=== PATIENT | male | born 1960 ===

== ENCOUNTER 2017-07-04 21:26 | Observation (INO) | payer BC, SELFPAY ==
[2017-07-04] MEDS ORDERED: hydrALAZINE 20 MG/ML VIAL SLOW IVP PRN (21:40)
[2017-07-04] MEDS ORDERED: Ondansetron ODT 4 MG TAB SL PRN (21:41)
[2017-07-04] MEDS ORDERED: Ondansetron HCl/PF 4 MG/2 ML Vial IVP PRN (21:41)
[2017-07-04] MEDS ORDERED: Acetaminophen 325 MG TAB PO PRN (21:41)
[2017-07-04 23:33] VITALS: BMI 25.4
[2017-07-04] MEDS ORDERED: Nitroglycerin 2% Ointment 1 INCH/1 GM Packet TOP SCH (23:59)
[2017-07-05 01:32] LABS: Troponin I 0.013 ng/mL (< 0.028)
[2017-07-05] MEDS ORDERED: Nitroglycerin 2% Ointment 1 INCH/1 GM Packet TOP SCH (02:00)
[2017-07-05] MEDS ORDERED: hydrALAZINE 20 MG/ML VIAL SLOW IVP PRN (02:20)
[2017-07-05] MEDS ORDERED: Acetaminophen 325 MG TAB PO PRN (02:28)
[2017-07-05] MEDS ORDERED: HYDROcodone/Acetaminophen 10/325 mg Tablet PO PRN (02:28)
[2017-07-05] MEDS ORDERED: HYDROcodone/Acetaminophen 5/325 mg Tablet PO PRN (02:28)
[2017-07-05] MEDS ORDERED: Ondansetron ODT 4 MG TAB PO PRN (02:28)
[2017-07-05] MEDS ORDERED: Enoxaparin Sodium 40 MG/0.4 ML SYRINGE SC SCH (02:30)
[2017-07-05 06:01] LABS: #Basophils 0.1 thou/uL (0.0-0.2); #Eosinphils 0.1 thou/uL (0.0-0.7); #Lymphocytes 1.9 thou/uL (1.20-3.40); #Monocytes 0.8 thou/uL (0.11-0.59); #Neutrophils 5.9 thou/uL (1.40-6.50); %Eosinophils 0.7 % (0.0-10.0); %Monocytes 9.3 % (0.0-10.0); Hemoglobin 14.6 g/dL (14.0-18.0); Mean Corpuscular HGB CONC 34.4 g/dL (32.0-36.0); Mean Corpuscular Hemoglobin 30.6 pg (27.0-31.0); Mean Corpuscular Volume 89.1 fl (80.0-94.0); Mean Platelet Volume 6.8 fL (7.4-10.4); Platelet Count 218 thou/uL (130-400); RBC Distribution Width 11.5 % (11.5-14.5); Red Blood Cell (RBC) Count 4.78 mill/uL (4.70-6.10); White Blood Cell (WBC) Count 8.8 thou/uL (4.8-10.8)
[2017-07-05 06:16] LABS: Anion Gap 10 mmol/L (10-20); BUN (Urea Nitrogen) 14 mg/dL (8.4-25.7); Calc. Creatinine Clearance 91 mL/min (70-130); Calcium 9.7 mg/dL (7.8-10.44); Carbon Dioxide 27 mmol/L (22-29); Cardiac Risk 3.6 (Less than 4.5); Chloride 107 mmol/L (98-107); Cholesterol 167 mg/dl (< 200 Desired); Estimated GFR-MDRD 73; Glucose 104 mg/dL (70-105); HDL Cholesterol 47 mg/dL (>60 Neg Risk); LDL Cholesterol, Calculated 104 mg/dL; Potassium 3.9 mmol/L (3.5-5.1); Sodium 140 mmol/L (136-145); Triglycerides 78 mg/dL (Less than 150)
--- NOTE | 2017-07-05 08:05 | HP ---
DATE OF ADMISSION: 07/05/2017 TIME OF SERVICE: 0230 CHIEF COMPLAINT: Dizzy and high blood pressure. PRIMARY CARE PHYSICIAN: None. HISTORY OF PRESENT ILLNESS: Mr. Sagastume is a 57-year-old white male with no known past medical histor y who presents to the emergency department in [place] for complaints of dizziness and high blood pr essure. The patient states he takes his blood pressure at home periodically. Blood pressure normall y ranges in the 150 systolic range. However, when he woke up the morning of 07/04/2017, he felt dizzy and just not his normal self. Thro ugh the day he took his blood pressure several times and noticed it was up in the 170 range, so decid ed to go to the emergency department there in [place] for evaluation. There systolic blood pressure was noted to be 227 over diastolic pressure 127. He was given labetalo l 10 mg IV, and nitro paste 1 inch to chest wall and we were called for direct admission. The patien t was seen by Dr. Riggs. As the blood pressure came down he had no further dizziness or strange feeling. He denied any chest pain, no nausea, vomiting, diarrhea or constipation. No fever or chills. No cough or sputum product ion. PAST MEDICAL HISTORY: None. PAST SURGICAL HISTORY: None. HOME MEDICATIONS: None. ALLERGIES: None. FAMILY HISTORY: Negative for clotting or bleeding disorder, no history of immune dysfunction. SOCIAL HISTORY: Negative for habits x3. 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 He is marri ed and monogamous. No recent travel. REVIEW OF SYSTEMS: A 10-point review of systems was performed, negative all systems except as stated per HPI. PHYSICAL EXAMINATION: VITAL SIGNS: Temperature is 98.4, pulse 65, blood pressure 171/92, respiratory rate 18, 99% on room air. Upon arrival here, his blood pressure was down to 118/67. He was feeling great. GENERAL: He is awake. He is alert. He is oriented x3, well-developed, well-nourished, white male w ho appears to be in no acute distress. HEENT: Normocephalic and atraumatic. Pupils are equal, round, react to light bilaterally. Mucous m embranes are moist. No visible lesion. No thrush. NECK: Supple. No lymphadenopathy, JVD or thyromegaly. He has normal carotid upstrokes without brui ts. CHEST: Lungs are clear. He has no wheezes, no rales, no rhonchi. Good air movement. Symmetric alberto st excursion. EXTREMITIES: Show no cyanosis, no clubbing, no edema. He has 2+ peripheral pulses on the dorsalis p bay, posterior tibial, and radial arteries bilaterally. SKIN: Warm, moist, and well perfused. He has no other rashes or lesions. NEUROLOGIC: Cranial nerves II-XII are grossly intact. There are no focal neurologic deficits. Norm al speech pattern, 5/5 strength in all 4 extremities. LABORATORY DATA: Sodium 137, potassium 4.2, chloride 104, bicarbonate 25, BUN 10, creatinine 1.0, gl ucose 181 and calcium 9.7. The liver functions are within normal limits. CBC showed a white count o f 7.2, hemoglobin 16.0, hematocrit of 44.7, platelet count is 250,000. CK was normal at 115, CK-MB 2 .4 and troponin I 0.012 and 0.013. RADIOGRAPHIC STUDIES: He had chest x-ray that was negative for acute cardiopulmonary disease. ASSESSMENT AND PLAN: 1. Accelerated hypertension. The patient's blood pressure is much better after IV labetalol. We wi ll transition him to oral Norvasc as calcium channel herb would be a good choice. We will give hi m a 5 mg dose in the morning and once the blood pressure remains stable and he is well controlled the n certainly could be considered to go home. He will need to reestablish with a new primary doctor. 2. Essential hypertension as above. 3. Hypertensive urgency: The patient did have some dizziness and disequilibrium while the blood pr essure was elevated. It resolved as his pressure came down. 4. Hypertensive encephalopathy as above.
[2017-07-05] MEDS ORDERED: Amlodipine 5 MG TAB PO SCH (09:00)
[2017-07-05] MEDS ORDERED: Famotidine 20 MG TAB PO SCH (09:00)
[2017-07-05 09:37] LABS: CKMB 1.6 ng/mL (0-6.6); Troponin I Less than 0.010 ng/mL (< 0.028)
[2017-07-05] MEDS ORDERED: Ibuprofen 600 MG TAB PO PRN (09:52)
[2017-07-05 11:43] VITALS: BP 148/81; TEMP 98.2
--- NOTE | 2017-07-05 12:43 | DIS ---
DATE OF ADMISSION: 07/05/2017 DATE OF DISCHARGE: 07/05/2017 DISCHARGE DIAGNOSES: Accelerated hypertensive urgency, hypertensive encephalopathy HISTORY OF PRESENT ILLNESS/HOSPITAL COURSE: Mr. Sagastume is a 57-year-old white male with known past m edical history who presented to the emergency room in [place] with complaints of dizziness and hig h blood pressure. He states he takes home blood pressure medications periodically and his blood pres sure usually ranges in the 150 systolic range. Earlier on 07/04/2017 he woke up feeling dizzy and di d feel his normal self. He took his blood pressure several times during the day and noted his blood pressure was in the 170 systolic and decided to go to the emergency room in [place] for evaluation. Over there, he was noted to have blood pressure of 227/127. He was given 10 mg of IV labetalol and nitro paste 1 inch to his chest wall and he was sent to the emergency room at [facility] fo r a direct admission. His blood pressure gradually returned to acceptable levels without any further episodes of dizziness or strange feeling. He denied chest pain, shortness of breath, nausea, vomiti ng, diarrhea or constipation. His physical examination was benign. He was started on amlodipine and considered stable for discharge. DISCHARGE MEDICATIONS: Amlodipine 10 mg daily. PHYSICAL EXAMINATION: Vital signs on the day of discharge; temperature 98.6, pulse rate 51, respirat ory rate 20, oxygen saturation 97% on room air, blood pressure 140/82. For further details, please r efer to today's history and physical. IMAGING: None. PROCEDURES: Echocardiogram. CONSULTATIONS: None. CONDITION AT DISCHARGE: Fair. DIET: Low sodium. ACTIVITY: Resume as tolerated. CARE GOALS: The patient is advised to take his medications as prescribed and to check his blood pres sure at home regularly. He is to follow up with his primary care physician within 1 week of discharg e. He is also advised to return to the emergency room if he suffers any more headaches, dizziness, l oss of consciousness or chest pain. Discharge time 65 minutes including chart review and documentation.
== END 2017-07-05 12:12 | disposition home or self-care (01) ==
LOC: 2SE 21:27 → INTOOBSV 21:27
PROVIDERS: ADMIT Internal Medicine; ATTEND Internal Medicine
DX: I16.0 Hypertensive urgency (principal); I67.4 Hypertensive encephalopathy; I10 Essential (primary) hypertension
CPT/HCPCS: 36415; 80048; 80061; 82553; 84484; 85025; 93306; 96372; G0378; J1650